=== PATIENT | male | born 2000 | race African-American/Black ===

== ENCOUNTER 2024-01-24 19:54 | Emergency (ER) | payer BC ==
[~2024-01-24] VITALS: Ht 180.3 cm; Wt 136.4 kg
[2024-01-24 19:59] VITALS: BP 143/83; TEMP 98.2
[2024-01-24] MEDS ORDERED: Ketorolac 15 MG/ML VIAL IM ONE (21:30)
[2024-01-24 21:51] VITALS: PULSE 92
== END 2024-01-24 21:50 | disposition home or self-care (01) ==
LOC: COL.ER 19:54
DX: S06.0X0A Concussion without loss of consciousness, initial encounter (principal); V89.2XXA Person injured in unspecified motor-vehicle accident, traffic, initial encounter; Y92.410 Unspecified street and highway as the place of occurrence of the external cause
CPT/HCPCS: J1885